=== PATIENT | female | born 1980 | race Caucasian/White ===

== ENCOUNTER 2025-09-06 08:53 | Emergency (ER) | payer SELFPAY ==
--- NOTE | ~2025-09-06 | XR_ITS ---
EXAMINATION: XR CHEST CLINICAL INFORMATION: vomiting rule out aspiration COMPARISON: None available. TECHNIQUE: Frontal view of the chest was obtained. FINDINGS: Lungs are clear. No consolidation or pulmonary edema. No pleural effusion or pneumothorax. Cardiac and mediastinal contours are stable. Postsurgical changes to the cervical spine. XR/XR chest 1V IMPRESSION: No evidence for acute disease in the chest. Electronically signed by: Emilia Lamas MD 09/06/2025 10:03 AM [facility]
[2025-09-06 09:07] VITALS: BP 125/80; PULSE 57; O2SAT 100
[2025-09-06 09:22] VITALS: BP 108/65; PULSE 59; RESP 18; TEMP 36.8; O2SAT 100; BMI 29.2
--- NOTE | 2025-09-06 09:27 | ED.NAVMDI ---
HPI - Nausea/Vomiting/Diarrhea General Chief complaint: Nausea/Vomiting/Diarrhea Stated complaint: neausa, vomiting, unable to hold liquid or solid, Time Seen by Provider: 09/06/25 10:24 History of Present Illness HPI Narrative: See full ER note, this is RME note only Related Data Allergies Allergy/AdvReac Type Severity Reaction Status Date / Time No Known Allergies Allergy Verified 09/06/25 09:24 [facility] Social History Social History Advance Directives: No Advance Directives Information Provided: No Do you have a plan to hurt others: No Plan Physical Exam Vital Signs: Vital Signs: Last Vital Signs Temp 98.8 F 09/06/25 14:46 Pulse 55 09/06/25 14:46 Resp 16 09/06/25 14:46 BP 134/76 09/06/25 14:46 Pulse Ox 100 09/06/25 14:46 O2 Del Method Room Air 09/06/25 14:46 BMI result Body Mass Index 29.2 Course Course Course Narrative: This is a RME preformed in triage by Janna Gamino PA-C. Date: 09/06/2025, time 928 am. Patient presents with GI sxs x 3 days. The patient arrives in tears due to abdominal pain radiating to the umbilicus. She describes the pain as 6?7/10 in intensity. Pain is associated with dysuria (?it hurts when I pee?) and very low urine output (?barely peeing at all?), which she attributes to not drinking much. She also reports abdominal cramping and an urgent sensation of needing to have a bowel movement, fearing possible incontinence and noting she has no spare clothing. No sick contacts reported. No medication or environmental allergies were identified. Work UP: abd labs and zofran, COVID/FLU Will defer full ROS and PE to treating provider. Patient will continued to be monitored in the interim. Medications Administered Discontinued Medications Generic Name Dose Route Start Last Admin Trade Name Freq PRN Reason Stop Dose Admin Lactated Ringer's 1,000 mls @ 999 mls/hr 09/06/25 10:58 09/06/25 14:22 Lr IV 09/06/25 11:58 Not Given .Q1H1M ONE Methadone HCl 40 mg 09/06/25 11:40 09/06/25 12:01 Methadone Hcl 20 Mg/2 Ml Oral.Conc PO 09/06/25 11:41 40 mg ONCE ONE Administration Naloxone HCl 8 mg 09/06/25 14:14 09/06/25 14:44 Naloxone Hcl Nasal Take Home 4 Mg [place] NOSTRILALT 09/06/25 14:15 8 mg ONCE ONE Administration Ondansetron HCl 4 mg 09/06/25 09:27 09/06/25 10:28 Ondansetron Odt 4 Mg Tab.Rapdis TRANSLINGU 09/06/25 09:28 4 mg ONCE ONE Administration Phenobarbital Sodium 130 mg 09/06/25 12:13 09/06/25 12:36 Phenobarbital Sodium 130 Mg/Ml Vial IM 09/06/25 12:14 130 mg ONCE ONE Administration Medical Decision Making Lab Data 09/06/25 10:44 09/06/25 10:44 Labs: Lab Results 09/06/25 Range/Units 10:44 WBC 7.3 (4.8-10.8) X10*3/uL RBC 5.10 (4.20-5.50) X10*6/uL Hgb 13.6 (12.0-16.0) g/dl Hct 40.5 (37.0-47.0) % MCV 79.4 L (80.0-98.0) fL MCH 26.7 L (27.0-33.0) pg MCHC 33.6 (31.0-35.0) g/dl RDW 14.8 (11.0-16.0) % Plt Count 319 (160-400) X10*3/uL MPV 9.6 (9.4-12.3) fL Immature Gran % (Auto) 0.3 (0.0-0.4) % Neut % (Auto) 80.6 H (45-73) % Lymph % (Auto) 15.9 L (20-40) % Victoria % (Auto) 3.1 (2-11) % Eos % (Auto) 0.0 (0-4) % Baso % (Auto) 0.1 (0-2) % Lymph # (Auto) 1.2 (1.2-4.9) X10*3/uL Victoria # (Auto) 0.2 (0.1-1.2) X10*3/uL Eos # (Auto) 0.0 (0.0-0.4) X10*3/uL Baso # (Auto) 0.0 (0.0-0.2) X10*3/uL Abs Immat Gran (auto) 0.02 (0.00-0.03) X10*3/uL Absolute Neuts (auto) 5.9 (2.0-8.3) x10*3/uL Absolute Nucleated RBC 0.000 (0.0-0.012) X10*3/uL Nucleated RBC % (auto) 0.0 (0.0-0.2) /100WBC Sodium 142 (135-145) mmol/L Potassium 3.4 (3.3-5.1) mmol/L Chloride 109 H (96-108) mmol/L Carbon Dioxide 21 L (22-29) mmol/L Anion Gap 15 (12-20) BUN 12 (9-16) mg/dL Creatinine 0.77 (0.5-1.4) mg/dL Estim Creat Clear Calc 94.6 Estimated GFR > 60 Random Glucose 133 H (60-115) mg/dL Calcium 10.1 (8.4-10.2) mg/dL Magnesium 2.0 (1.6-2.6) mg/dL Total Bilirubin 0.7 (0.0-1.0) mg/dL AST 30 (5-31) U/L ALT 44 H (0-31) U/L Alkaline Phosphatase 97 (39-117) U/L Total Protein 9.3 H (6.5-8.0) g/dL Albumin 5.0 (3.5-5.0) g/dL Lipase 15 (8-78) U/L Influenza Type A (PCR) NEGATIVE (Negative) Influenza Type B (PCR) NEGATIVE (Negative) RSV RNA Qual (PCR) NEGATIVE (Negative) SARS-CoV-2 RNA (RT-PCR) NEGATIVE (Negative) Discharge Plan Discharge Clinical Impression: Opiate withdrawal Patient Disposition: Home, Self-Care Additional Instructions: Opiate use disorder You were seen in our Emergency Department today for treatment of opiate use disorder. You may have been dosed with medication for opiate use disorder (MOUD) in the form of suboxone or methadone. You may experience feeling some withdrawal symptoms and this is normal. The? dose in the Emergency Department is a starting dose and meant to be titrated up once you follow up with a clinic. Please do not feel discouraged, it is a process. The nurse has reviewed with you where to follow up and what information to bring with you, to continue treatment. You also may have been given naloxone (narcan) to take home with you. This medication is used to potentially treat opiate overdose. If you decide you want to stop or cut down on how much you?re using, you can call or walk into our outpatient Addiction Treatment office: [facility] (M-F 9am-5p) [address], [address] [phone] You may have been provided with safer injection?items, please take time to take care of YOU and your health. Use new supplies whenever possible to lessen the chances of infections and other illnesses.? ?If you need more supplies, please go [facility],? [address] [place] [address] OR you can call or text to coordinate delivery of safer supplies. You were also provided a list of several treatment providers in the area.? If you experience any worsening symptoms you cannot control please return to the ED or call 911. Please follow up at your next appointment. Things to look out for are fevers, chest pain, shortness of breath, severe pain, dizziness, fainting or any other concerns. Interventions: ED Discharge Assessment Last Done: 09/06/25 14:46 Discharge Date/Time: 09/06/25 14:49 Print Language: Amharic
[2025-09-06 10:50] LABS: MANUAL DIFF FLAG NO
[2025-09-06 10:51] LABS: Hematocrit 40.5 % (37.0-47.0); Hemoglobin 13.6 g/dl (12.0-16.0); Imm Gran Abs Auto 0.02 X10*3/uL (0.00-0.03); Imm Gran Pct Auto 0.3 % (0.0-0.4); Lymphocytes Absolute Auto 1.2 X10*3/uL (1.2-4.9); Mean Corpuscular HGB Conc 33.6 g/dl (31.0-35.0); Mean Corpuscular Hemoglobin 26.7 pg (27.0-33.0); Mean Corpuscular Volume 79.4 fL (80.0-98.0); NRBC Abs Auto 0.000 X10*3/uL (0.0-0.012); NRBC Pct Auto 0.0 /100WBC (0.0-0.2); Platelet Count 319 X10*3/uL (160-400); Red Blood Count 5.10 X10*6/uL (4.20-5.50); White Blood Count 7.3 X10*3/uL (4.8-10.8)
--- NOTE | 2025-09-06 10:57 | ED.GENADULT ---
HPI - General Adult General Chief complaint: Nausea/Vomiting/Diarrhea Stated complaint: neausa, vomiting, unable to hold liquid or solid, Time Seen by Provider: 09/06/25 10:24 Source: patient, EMS, RN notes reviewed and old records reviewed Mode of arrival: EMS Limitations: no limitations History of Present Illness ED Provider: KONSTANTIN Coker HPI narrative: 45-year-old female with medical history of opiate use disorder presents to the ED due to 3 days of nausea, vomiting and diarrhea. Patient states that she uses IV fentanyl but has not used in about 4 days and is unsure if she has a viral illness as she reports subjective fever with chills yesterday or if this is opiate withdrawal. Patient states she uses approximately 10 bags a fentanyl per day however has not used an approximately 3 days as she is trying to cut down her use and wants to get back on methadone treatment. Denies chest pain, shortness of breath, difficulty breathing, abdominal pain, urinary symptoms MD complaint: Nausea, vomiting, diarrhea Related Data Allergies Allergy/AdvReac Type Severity Reaction Status Date / Time No Known Allergies Allergy Verified 09/06/25 09:24 Review of Systems Review of Systems: Yes all other systems are reviewed and are negative PMFSH Past Medical History Attestation statement: The following information was validated with the patient. Source: old records reviewed and nursing notes reviewed Social History Social History Advance Directives: No Advance Directives Information Provided: No Do you have a plan to hurt others: No Plan Physical Exam ED Vital Signs: Vital Signs - 24 hr 09/06/25 09:22 09/06/25 11:16 Temperature 98.3 F Pulse Rate 59 60 Respiratory Rate 18 20 Blood Pressure 108/65 Pulse Oximetry 100 100 Oxygen Delivery Method Room Air Room Air BMI result Body Mass Index 29.2 GENERAL APPEARANCE: ?AxOx4, generally well-appearing, no acute distress. HEENT: ?NC, AT. MMM. EOMI, clear conjunctiva, oropharynx clear. NECK: ?Supple without lymphadenopathy.? No stiffness or restricted ROM. HEART:? Normal rate and regular rhythm, normal S1/S2, no m/r/g LUNGS:? CTAB, moving air well. No crackles or wheezes are heard. ABDOMEN: ?Soft, nontender, nondistended with good bowel sounds heard. BACK: No CVAT, no obvious deformity. EXTREMITIES: ?Without cyanosis, clubbing or edema. NEUROLOGICAL: ?Grossly nonfocal. Alert and oriented, moving all 4 extremities. Skin: ?Warm and dry without any rash. Medications Administered Discontinued Medications Generic Name Dose Route Start Last Admin Trade Name Neris PRN Reason Stop Dose Admin Lactated Ringer's 1,000 mls @ 999 mls/hr 09/06/25 10:58 09/06/25 14:22 Lr IV 09/06/25 11:58 Not Given .Q1H1M ONE Methadone HCl 40 mg 09/06/25 11:40 09/06/25 12:01 Methadone Hcl 20 Mg/2 Ml Oral.Conc PO 09/06/25 11:41 40 mg ONCE ONE Administration Naloxone HCl 8 mg 09/06/25 14:14 09/06/25 14:44 Naloxone Hcl Nasal Take Home 4 Mg [place] NOSTRILALT 09/06/25 14:15 8 mg ONCE ONE Administration Ondansetron HCl 4 mg 09/06/25 09:27 09/06/25 10:28 Ondansetron Odt 4 Mg Tab.Rapdis TRANSLINGU 09/06/25 09:28 4 mg ONCE ONE Administration Phenobarbital Sodium 130 mg 09/06/25 12:13 09/06/25 12:36 Phenobarbital Sodium 130 Mg/Ml Vial IM 09/06/25 12:14 130 mg ONCE ONE Administration Medical Decision Making Medical Decision Making MDM Narrative: 45-year-old female with medical history of opiate use disorder presents to the ED due to 3 days of nausea, vomiting and diarrhea. Patient states that she uses IV fentanyl but has not used in about 4 days and is unsure if she has a viral illness as she reports subjective fever with chills yesterday or if this is opiate withdrawal. Patient states she uses approximately 10 bags a fentanyl per day however has not used an approximately 3 days as she is trying to cut down her use and wants to get back on methadone treatment. VS on initial observation-BP 108/65, pulse rate of 59, respiratory rate of 18, afebrile with oral temp of 98.3?, O2 saturation 100% on room air. On physical exam Plan: Labs, EKG, CXR, recovery team consult EKG reveals sinus bradycardia, with a prolonged QTC of 484, no ST-elevation/depression, T-wave abnormalities Labs without leukocytosis/leukopenia, no evidence of anemia, no electrolyte abnormalities. Viral serology negative. CXR WNL Patient with 3 days of nausea, vomiting, diarrhea that started when she stopped using IV fentanyl. Labs without leukocytosis/leukopenia, viral serology negative, chest x-ray WNL. Nursing reported a COWS score of 11, symptoms are most consistent with opiate withdrawal symptoms. Patient reported she is trying to stop using IV drugs and transition to methadone but has some insurance issues. Patient was medicated with 1 L IV fluids, 4 mg trans inguinal Zofran, 40mg PO methadone. Patient was evaluated by recovery team and stated she has a plan to self presenting tomorrow to [facility] [place]. We offered her the option to self present to [facility] during walk in hours to resume her methadone dosing if she does not self present to [facility] tomorrow. Patient being discharged with take-home Narcan for safety. Patient feels well enough to go home for self-care at this time and is agreement with the plan. Differential Diagnosis Differential Diagnoses: The differential diagnosis associated with the presentation includes Opioid intoxication Opiate withdrawal Dysrhythmia Electrolyte abnormality COVID Flu RSV Viral illness Admission/Observation Consideration of admission/observation: Escalation of care including admission/observation considered Lab Data [facility] Lab Attestation statement: I reviewed the patient's lab results. 09/06/25 10:44 09/06/25 10:44 Labs: Lab Results 09/06/25 Range/Units 10:44 WBC 7.3 (4.8-10.8) X10*3/uL RBC 5.10 (4.20-5.50) X10*6/uL Hgb 13.6 (12.0-16.0) g/dl Hct 40.5 (37.0-47.0) % MCV 79.4 L (80.0-98.0) fL MCH 26.7 L (27.0-33.0) pg MCHC 33.6 (31.0-35.0) g/dl RDW 14.8 (11.0-16.0) % Plt Count 319 (160-400) X10*3/uL MPV 9.6 (9.4-12.3) fL Immature Gran % (Auto) 0.3 (0.0-0.4) % Neut % (Auto) 80.6 H (45-73) % Lymph % (Auto) 15.9 L (20-40) % Bent % (Auto) 3.1 (2-11) % Eos % (Auto) 0.0 (0-4) % Baso % (Auto) 0.1 (0-2) % Lymph # (Auto) 1.2 (1.2-4.9) X10*3/uL Bent # (Auto) 0.2 (0.1-1.2) X10*3/uL Eos # (Auto) 0.0 (0.0-0.4) X10*3/uL Baso # (Auto) 0.0 (0.0-0.2) X10*3/uL Abs Immat Gran (auto) 0.02 (0.00-0.03) X10*3/uL Absolute Neuts (auto) 5.9 (2.0-8.3) x10*3/uL Absolute Nucleated RBC 0.000 (0.0-0.012) X10*3/uL Nucleated RBC % (auto) 0.0 (0.0-0.2) /100WBC Sodium 142 (135-145) mmol/L Potassium 3.4 (3.3-5.1) mmol/L Chloride 109 H (96-108) mmol/L Carbon Dioxide 21 L (22-29) mmol/L Anion Gap 15 (12-20) BUN 12 (9-16) mg/dL Creatinine 0.77 (0.5-1.4) mg/dL Estim Creat Clear Calc 94.6 Estimated GFR > 60 Random Glucose 133 H (60-115) mg/dL Calcium 10.1 (8.4-10.2) mg/dL Magnesium 2.0 (1.6-2.6) mg/dL Total Bilirubin 0.7 (0.0-1.0) mg/dL AST 30 (5-31) U/L ALT 44 H (0-31) U/L Alkaline Phosphatase 97 (39-117) U/L Total Protein 9.3 H (6.5-8.0) g/dL Albumin 5.0 (3.5-5.0) g/dL Lipase 15 (8-78) U/L Influenza Type A (PCR) NEGATIVE (Negative) Influenza Type B (PCR) NEGATIVE (Negative) RSV RNA Qual (PCR) NEGATIVE (Negative) SARS-CoV-2 RNA (RT-PCR) NEGATIVE (Negative) Independent Interpretation I performed an independent interpretation of an: EKG Interpretation: I personally interpreted the EKG which reveals sinus bradycardia without acute ischemic changes, and lengthened QTC of 484 Vent. Rate : 58 BPM Atrial Rate : 58 BPM P-R Int : 190 ms QRS Dur : 86 ms QT Int : 494 ms P-R-T Axes : 69 49 43 degrees QTcB Int : 484 ms Sinus bradycardia Prolonged QT Abnormal ECG No previous ECGs available I personally interpreted the CXR which was negative for infiltrates, consolidations, pleural effusion, pulmonary edema, cardiomegaly, I agree with the radiologist's interpretation Radiology Impression Discussion of test interpretation with radiology: I have reviewed the radiologist's reading. Radiologist Impression: CXR FINDINGS: Lungs are clear. No consolidation or pulmonary edema. No pleural effusion or pneumothorax. Cardiac and mediastinal contours are stable. Postsurgical changes to the cervical spine. XR/XR chest 1V IMPRESSION: No evidence for acute disease in the chest. Electronically signed by: Emilia Lamas MD 09/06/2025 10:03 AM [facility] Dictated By: Emilia Lamas MD Signed By: <Electronically signed by Emilia Lamas MD in OV> 09/06/25 1003 External Record Review External record reviewed: Inpatient record, Office record, Outpatient record and Prior outpatient labs Chronic Conditions Patient?s care impacted by: Other (Opiate use disorder) Social Determinants Patient?s care significantly limited by Social Determinants of Health including: Other Social Determinant of Health Discharge Plan Discharge Clinical Impression: Opiate withdrawal Patient Disposition: Home, Self-Care Additional Instructions: Opiate use disorder You were seen in our Emergency Department today for treatment of opiate use disorder. You may have been dosed with medication for opiate use disorder (MOUD) in the form of suboxone or methadone. You may experience feeling some withdrawal symptoms and this is normal. The? dose in the Emergency Department is a starting dose and meant to be titrated up once you follow up with a clinic. Please do not feel discouraged, it is a process. The nurse has reviewed with you where to follow up and what information to bring with you, to continue treatment. You also may have been given naloxone (narcan) to take home with you. This medication is used to potentially treat opiate overdose. If you decide you want to stop or cut down on how much you?re using, you can call or walk into our outpatient Addiction Treatment office: [facility] (M-F 9am-5p) [address], [address] [phone] You may have been provided with safer injection?items, please take time to take care of YOU and your health. Use new supplies whenever possible to lessen the chances of infections and other illnesses.? ?If you need [facility],? [address] [place] [address] OR you can call or text to coordinate delivery of safer supplies. You were also provided a list of several treatment providers in the area.? If you experience any worsening symptoms you cannot control please return to the ED or call 911. Please follow up at your next appointment. Things to look out for are fevers, chest pain, shortness of breath, severe pain, dizziness, fainting or any other concerns. Interventions: ED Discharge Assessment Last Done: 09/06/25 14:46 Discharge Date/Time: 09/06/25 14:49 Print Language: Bulgarian
--- NOTE | 2025-09-06 11:02 | ECG_ITS ---
Test Reason : ABD PAIN Blood Pressure : */* mmHG Vent. Rate : 58 BPM Atrial Rate : 58 BPM P-R Int : 190 ms QRS Dur : 86 ms QT Int : 494 ms P-R-T Axes : 69 49 43 degrees QTcB Int : 484 ms Artifact in tracing Sinus bradycardia Prolonged QT Abnormal ECG No previous ECGs available Referred By: Froilan Coker Electronically Signed By: YULIA RANDHAWA
[2025-09-06 11:07] LABS: Alanine Aminotransferase 44 U/L (0-31); Albumin Level 5.0 g/dL (3.5-5.0); Alkaline Phosphatase 97 U/L (39-117); Anion Gap 15 (12-20); Aspartate Amino Transferase 30 U/L (5-31); Blood Urea Nitrogen 12 mg/dL (9-16); Calcium 10.1 mg/dL (8.4-10.2); Carbon Dioxide 21 mmol/L (22-29); Chloride 109 mmol/L (96-108); Creatinine Clr Calc Pharmacy 94.6; Estimated Glomerular Filt Rate > 60; Lipase 15 U/L (8-78); Magnesium 2.0 mg/dL (1.6-2.6); Potassium 3.4 mmol/L (3.3-5.1); Sodium 142 mmol/L (135-145); Total Protein 9.3 g/dL (6.5-8.0)
[2025-09-06 11:13] VITALS: PULSE 60
[2025-09-06 11:16] VITALS: PULSE 60; RESP 20; O2SAT 100
[2025-09-06 11:33] LABS: Resp Syncy Virus RNA Qual PCR NEGATIVE (Negative); SARS COV2 PCR INHOUSE NEGATIVE (Negative)
[2025-09-06] MEDS: methADONE HCl 20 MG/2 ML ORAL.CONC 40 MG PO (12:01)
[2025-09-06 14:21] VITALS: BP 134/76; PULSE 55; RESP 16; TEMP 37.1; O2SAT 100
[2025-09-06] MEDS: Naloxone HCl Nasal TAKE HOME 4 MG SPRAY 8 MG NOSTRILALT (14:44)
[2025-09-06 14:46] VITALS: BP 134/76; PULSE 55; RESP 16; TEMP 37.1; O2SAT 100
== END 2025-09-06 14:49 | disposition home or self-care (01) ==
PROVIDERS: Physician Assistant Medical; Emergency Provider Emergency Medicine
DX: F11.23 Opioid dependence with withdrawal (principal); R11.2 Nausea with vomiting, unspecified; R19.7 Diarrhea, unspecified; R00.1 Bradycardia, unspecified; R50.9 Fever, unspecified; Z03.818 Encounter for observation for suspected exposure to other biological agents ruled out; Z79.899 Other long term (current) drug therapy
CPT/HCPCS: 71045; 80053; 83690; 83735; 85025; 87637; 93005; 96365; 96372; 99284; J2560

== ENCOUNTER → 2025-09-06 09:27 | Outpatient (BNV) | payer SELFPAY | PROVIDERS: Emergency Provider Emergency Medicine; Visit Provider Radiology Diagnostic Radiology | DX: R11.2 Nausea with vomiting, unspecified (principal) | CPT/HCPCS: 71045 ==

== ENCOUNTER → 2025-09-06 11:02 | Outpatient (BNV) | payer SELFPAY | PROVIDERS: Emergency Provider Emergency Medicine; Visit Provider Internal Medicine | DX: R00.1 Bradycardia, unspecified (principal) | CPT/HCPCS: 93010 ==